=== PATIENT | female | born 1965 ===

== ENCOUNTER 2024-04-16 14:02 | Outpatient (CLI) | payer OTHER | END 2024-04-16 14:03 | disposition home or self-care (01) | LOC: BICMRI 14:02 | PROVIDERS: ATTEND Orthopaedic Surgery Hand Surgery | DX: S63.592A Other specified sprain of left wrist, initial encounter (principal); M92.212 Osteochondrosis (juvenile) of carpal lunate [Kienbock], left hand; M77.9 Enthesopathy, unspecified ==